=== PATIENT | male | born 1945 | race Caucasian/White ===

== ENCOUNTER 2022-07-12 17:58 | Emergency (ER) | payer OTHER ==
[~2022-07-12] VITALS: Ht 182.9 cm; Wt 117.5 kg
[~2022-07-12 17:58] MED LIST: ACET500 PO; AMIT50 PO; AMIT75; AMLO5 PO; ASPI325EC PO; CALC.25 PO; CALCIT950; CAPT25 PO; CEPH500 PO; CHOL10002 PO; GABA100 PO; HYDACE5 PO; HYDCHL25 PO; LEVFLO500 PO; Micro-K10 MEQ PO; OMEPRAZOLE MAGN20 MG PO; OXYACE5T PO; OXYC5 PO; POTCIT10; TERA5 PO
[2022-07-12 18:21] LABS: BASOPHILS ABSOLUTE AUTO 0.01 K/mm3 (0.00-0.23); BASOPHILS PERCENT AUTO 0 % (0-2); EOSINOPHILS ABSOLUTE AUTO 0.17 K/mm3 (0.00-0.68); EOSINOPHILS PERCENT AUTO 3 % (0-6); Hematocrit 41.6 % (37.0-53.0); Hemoglobin 14.2 g/dL (13.5-17.5); IMMATURE GRAN ABSOLUTE AUTO 0.02 K/mm3 (0.00-0.10); IMMATURE GRAN PERCENT AUTO 0 % (0-1); LYMPHOCYTES ABSOLUTE AUTO 0.89 K/mm3 (0.84-5.20); LYMPHOCYTES PERCENT AUTO 15 % (21-46); MONOCYTES ABSOLUTE AUTO 0.66 K/mm3 (0.16-1.47); MONOCYTES PERCENT AUTO 11 % (4-13); Mean Corpuscular HGB Conc 34.1 g/dL (31.5-36.5); Mean Corpuscular Volume 88 fL (80-100); Mean Platelet Volume 9.9 fL (9.1-12.4); NEUTROPHILS ABSOLUTE AUTO 4.26 K/mm3 (1.96-9.15); NEUTROPHILS PERCENT AUTO 71 % (41-73); Platelet Count 156 K/mm3 (150-400); RDW Standard Deviation 42.5 fL (35.1-46.3); Red Blood Cell Count 4.74 M/mm3 (4.30-5.90); White Blood Cell Count 6.01 K/mm3 (4.00-11.30)
[2022-07-12 19:52] LABS: Albumin, Blood 3.8 g/dL (3.4-5.0); Albumin/Globulin Ratio 1.4 (0.8-1.8); Bilirubin, Total 0.6 mg/dL (0.1-1.0); Bun/Creatinine Ratio 13.9 (12.0-20.0); Calcium, Blood 8.7 mg/dL (8.5-10.1); Creatinine, Blood 1.73 mg/dL (0.60-1.20); Globulin, Blood 2.8 g/dL (2.2-4.0); Potassium, Blood 4.4 mmol/L (3.5-5.5); Total Protein, Blood 6.6 g/dL (6.4-8.2)
== END 2022-07-12 23:30 | disposition home or self-care (01) ==
LOC: ER 17:58
PROVIDERS: Emergency Medicine
DX: R07.89 Other chest pain (principal); R06.02 Shortness of breath; I10 Essential (primary) hypertension; Z88.5 Allergy status to narcotic agent; Z79.899 Other long term (current) drug therapy; Z79.82 Long term (current) use of aspirin; Z87.891 Personal history of nicotine dependence
CPT/HCPCS: 71046; 80053; 84484; 85025; 85379; 93005; 93010; 99285-25

== ENCOUNTER 2022-11-15 13:47 | Emergency (ER) | payer OTHER ==
[~2022-11-15] VITALS: Ht 182.9 cm; Wt 122.5 kg
[2022-11-15 14:40] LABS: BASOPHILS ABSOLUTE AUTO 0.01 K/mm3 (0.00-0.23); BASOPHILS PERCENT AUTO 0 % (0-2); EOSINOPHILS PERCENT AUTO 2 % (0-6); Hematocrit 44.9 % (37.0-53.0); Hemoglobin 15.3 g/dL (13.5-17.5); IMMATURE GRAN ABSOLUTE AUTO 0.02 K/mm3 (0.00-0.10); IMMATURE GRAN PERCENT AUTO 1 % (0-1); LYMPHOCYTES ABSOLUTE AUTO 0.91 K/mm3 (0.84-5.20); LYMPHOCYTES PERCENT AUTO 21 % (21-46); MONOCYTES ABSOLUTE AUTO 0.43 K/mm3 (0.16-1.47); MONOCYTES PERCENT AUTO 10 % (4-13); Mean Corpuscular HGB 30.3 pg (26.0-34.0); Mean Corpuscular HGB Conc 34.1 g/dL (31.5-36.5); Mean Corpuscular Volume 89 fL (80-100); Mean Platelet Volume 10.6 fL (9.1-12.4); NEUTROPHILS ABSOLUTE AUTO 2.95 K/mm3 (1.96-9.15); NEUTROPHILS PERCENT AUTO 67 % (41-73); Platelet Count 141 K/mm3 (150-400); RDW Coefficient Variation 12.5 % (11.7-14.2); RDW Standard Deviation 41.3 fL (35.1-46.3); Red Blood Cell Count 5.05 M/mm3 (4.30-5.90); White Blood Cell Count 4.42 K/mm3 (4.00-11.30)
[2022-11-15 14:46] LABS: Albumin, Blood 3.8 g/dL (3.4-5.0); Albumin/Globulin Ratio 1.2 (0.8-1.8); Bilirubin, Total 0.7 mg/dL (0.1-1.0); Bun/Creatinine Ratio 18.1 (12.0-20.0); Calcium, Blood 8.7 mg/dL (8.5-10.1); Creatinine, Blood 1.71 mg/dL (0.60-1.20); Globulin, Blood 3.1 g/dL (2.2-4.0); Potassium, Blood 4.3 mmol/L (3.5-5.5); Total Protein, Blood 6.9 g/dL (6.4-8.2)
== END 2022-11-15 18:00 | disposition home or self-care (01) ==
LOC: ER 13:47
PROVIDERS: Student in an Organized Health Care Education/Training Program
DX: R07.89 Other chest pain (principal); I10 Essential (primary) hypertension; Z88.5 Allergy status to narcotic agent; Z79.899 Other long term (current) drug therapy; Z79.82 Long term (current) use of aspirin; Z87.891 Personal history of nicotine dependence
CPT/HCPCS: 71046; 80053; 83690; 83880; 84484; 85025; 93005; 93010; A9270; J3010

== ENCOUNTER 2023-10-23 09:50 | Day surgery (SDC) | payer OTHER ==
[~2023-10-23] VITALS: Ht 182.9 cm; Wt 127.3 kg
[2023-10-23] MEDS ORDERED: ALFU10 (10:10)
[2023-10-23] MEDS ORDERED: MELATONIN 5 MG1 EACH (10:10)
--- NOTE | 2023-10-23 10:31 | NUR ---
10/23/23 1031 Cindy Webster TETRACAINE PLACED IN RIGHT EYE AT 1009. PLEDGET PLACED IN RIGHT EYE AT 1010. PATIENT TOLERATED WELL.
[2023-10-23 11:02] VITALS: BP 146/88
[2023-10-29] MEDS ORDERED: Cymbalta20 MG (10:33)
[2023-10-29] MEDS ORDERED: GABAPENTIN600 MG PO (10:34)
[2023-10-29] MEDS ORDERED: FURO20 (10:34)
[2023-10-29] MEDS ORDERED: HYDCHL25 PO (10:35)
== END 2023-10-23 11:20 | disposition home or self-care (01) ==
LOC: ORSCSDS 09:50
PROVIDERS: Ophthalmology
PROC: 08RJ3JZ Replacement of Right Lens with Synthetic Substitute, Percutaneous Approach (ICD-10-PCS; principal; 2023-10-23 11:00)
DX: H25.11 Age-related nuclear cataract, right eye (principal); H52.201 Unspecified astigmatism, right eye; I12.9 Hypertensive chronic kidney disease with stage 1 through stage 4 chronic kidney disease, or unspecified chronic kidney disease; N18.9 Chronic kidney disease, unspecified; I48.91 Unspecified atrial fibrillation; K21.9 Gastro-esophageal reflux disease without esophagitis; M19.90 Unspecified osteoarthritis, unspecified site; Z79.899 Other long term (current) drug therapy
CPT/HCPCS: J2250; J3010; J3301; J7040; V2632

== ENCOUNTER 2023-11-06 10:07 | Day surgery (SDC) | payer OTHER ==
[~2023-11-06] VITALS: Ht 182.9 cm; Wt 126.0 kg
[~2023-11-06 10:07] MED LIST changes: +ALFU10; +Cymbalta20 MG; +FURO20; +GABAPENTIN600 MG PO; +MELATONIN 5 MG1 EACH
[2023-11-06] MEDS ORDERED: ELIQUIS5 M2 PO (10:44)
[2023-11-06] MEDS ORDERED: METOPROLOL SUCC25 MG PO (10:44)
[2023-11-06 11:55] VITALS: BP 140/93
--- NOTE | 2023-11-06 12:19 | NUR ---
11/06/23 1219 Filipe Mcbride IV REMOVED INTACT. SITE WNL.
== END 2023-11-06 12:12 | disposition home or self-care (01) ==
LOC: ORSCSDS 10:07
PROVIDERS: Ophthalmology
PROC: 08RK3JZ Replacement of Left Lens with Synthetic Substitute, Percutaneous Approach (ICD-10-PCS; principal; 2023-11-06 11:30)
DX: H25.12 Age-related nuclear cataract, left eye (principal); Z96.1 Presence of intraocular lens; H52.202 Unspecified astigmatism, left eye; K21.9 Gastro-esophageal reflux disease without esophagitis; I48.91 Unspecified atrial fibrillation; I10 Essential (primary) hypertension; R06.02 Shortness of breath; E66.9 Obesity, unspecified; Z68.37 Body mass index [BMI] 37.0-37.9, adult; Z87.891 Personal history of nicotine dependence; Z79.899 Other long term (current) drug therapy
CPT/HCPCS: J2250; J3010; J3301; J7040; V2632

== ENCOUNTER 2024-10-31 12:42 | Inpatient (IN) | payer OTHER ==
[~2024-10-31] VITALS: Ht 182.9 cm; Wt 117.1 kg
[~2024-10-31 12:42] MED LIST changes: -ALFU10; +ALFU10 PO; +ELIQUIS5 M2 PO; +METOPROLOL SUCC25 MG PO
[2024-10-31 13:11] LABS: BASOPHILS ABSOLUTE AUTO 0.01 K/mm3 (0.00-0.23); BASOPHILS PERCENT AUTO 0 % (0-2); EOSINOPHILS ABSOLUTE AUTO 0.13 K/mm3 (0.00-0.68); EOSINOPHILS PERCENT AUTO 2 % (0-6); Hemoglobin 18.5 g/dL (13.5-17.5); IMMATURE GRAN ABSOLUTE AUTO 0.02 K/mm3 (0.00-0.10); IMMATURE GRAN PERCENT AUTO 0 % (0-1); LYMPHOCYTES PERCENT AUTO 16 % (21-46); MONOCYTES ABSOLUTE AUTO 0.48 K/mm3 (0.16-1.47); MONOCYTES PERCENT AUTO 8 % (4-13); Mean Corpuscular HGB 29.8 pg (26.0-34.0); Mean Corpuscular HGB Conc 33.5 g/dL (31.5-36.5); Mean Corpuscular Volume 89 fL (80-100); Mean Platelet Volume 9.5 fL (9.1-12.4); NEUTROPHILS ABSOLUTE AUTO 4.16 K/mm3 (1.96-9.15); NEUTROPHILS PERCENT AUTO 73 % (41-73); Platelet Count 166 K/mm3 (150-400); RDW Coefficient Variation 13.6 % (11.7-14.2); RDW Standard Deviation 43.9 fL (35.1-46.3); Red Blood Cell Count 6.21 M/mm3 (4.30-5.90)
[2024-10-31 13:14] LABS: Hematocrit 55.3 % (37.0-53.0)
[2024-10-31 13:32] LABS: Albumin, Blood 3.9 g/dL (3.4-5.0); Albumin/Globulin Ratio 1.1 (0.8-1.8); Bun/Creatinine Ratio 15.4 (12.0-20.0); Calcium, Blood 9.4 mg/dL (8.5-10.1); Creatinine, Blood 1.62 mg/dL (0.60-1.20); Globulin, Blood 3.7 g/dL (2.2-4.0); Potassium, Blood 4.5 mmol/L (3.5-5.5); Total Protein, Blood 7.6 g/dL (6.4-8.2)
[2024-10-31] MEDS ORDERED: Acetaminophen 500 MG Tab PO ONE (15:35)
[2024-10-31] MEDS ORDERED: Vancomycin HCL 2,000 MG in NS 520 ML IV ONE (15:40)
[2024-10-31] MEDS ORDERED: ATORVASTATIN CA40 M1 PO (17:36)
[2024-10-31] MEDS ORDERED: BUME2 PO (17:37)
[2024-10-31] MEDS ORDERED: CYCL10 PO (17:37)
[2024-10-31] MEDS ORDERED: DOXY100 PO (17:38)
[2024-10-31] MEDS ORDERED: ISOMON20 PO (17:38)
[2024-10-31] MEDS ORDERED: FINA5 PO (17:38)
[2024-10-31] MEDS ORDERED: MELA3 PO (17:39)
[2024-10-31] MEDS ORDERED: LACT PO (17:39)
[2024-10-31] MEDS ORDERED: MECL12.5 PO (17:39)
[2024-10-31] MEDS ORDERED: NITR.4SL SL (17:40)
[2024-10-31] MEDS ORDERED: METO50ER PO (17:40)
[2024-10-31] MEDS ORDERED: Bisacodyl 10 MG Supp PR PRN (18:05)
[2024-10-31] MEDS ORDERED: Ondansetron 4 MG TAB PO PRN (18:10)
[2024-10-31] MEDS ORDERED: Magnesium Hydroxide Conc 10 ML UDC PO PRN (18:10)
[2024-10-31] MEDS ORDERED: FLU VACC TS2024-25(6MOS UP)/PF 45 MCG/0.5 ML SYRINGE IM ONE (18:10)
[2024-10-31] MEDS ORDERED: Bumetanide 1 MG Tab PO PRN (18:15)
[2024-10-31] MEDS ORDERED: Meclizine HCl 25 MG Tab PO PRN (18:15)
[2024-10-31] MEDS ORDERED: Nitroglycerin 0.4 MG SUBL SL PRN (18:15)
[2024-10-31] MEDS ORDERED: Acetaminophen 325 MG TABLET PO PRN (18:55)
[2024-10-31] MEDS ORDERED: Cyclobenzaprine HCl 10 MG Tab PO SCH (21:00)
[2024-10-31] MEDS ORDERED: Famotidine 20 MG Tab PO SCH (21:00)
[2024-10-31] MEDS ORDERED: Docusate Sodium 100 MG Cap PO SCH (21:00)
[2024-10-31] MEDS ORDERED: Lactobacil 2-S.Thermo-Bifido 1 1 Cap PO SCH (21:00)
[2024-10-31] MEDS ORDERED: Melatonin 3 MG Tab PO SCH (21:00)
[2024-10-31] MEDS ORDERED: Apixaban 5 MG Tab PO SCH (21:00)
[2024-10-31] MEDS ORDERED: Sennosides 8.6 MG Tab PO SCH (21:00)
[2024-10-31] MEDS ORDERED: AmLODIPine Besylate 5 MG Tab PO SCH (21:00)
[2024-10-31] MEDS ORDERED: Gabapentin 400 MG Cap PO SCH (21:00)
[2024-10-31 22:28] VITALS: BP 122/84
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
[2024-11-01 01:29] VITALS: BP 112/84
--- NOTE | 2024-11-01 03:57 | NUR ---
SHIFT SUMMARY PT WAS A ADMIT FROM THE ER THIS SHIFT. HES ALERT ORIENTED CALLS APPROPRIATELY HES AD JEFFREY IN HIS ROOM AND AMBULATES TO THE BATHROOM. NO C/O PAIN. VSS ON RA SATTING AT 95%. HIS LT LEG REMAINS RED AND SWOLLEN. HE CONTINUES ON VANCO FOR CELLULITIS TO LT LEG. HES SLEPT MOST OF THE SHIFT SINCE HIS ADMIT. HES RESTING IN BED AT THIS TIME WITH CALL LIGHT IN REACH
[2024-11-01 05:19] LABS: BASOPHILS ABSOLUTE AUTO 0.01 K/mm3 (0.00-0.23); BASOPHILS PERCENT AUTO 0 % (0-2); EOSINOPHILS ABSOLUTE AUTO 0.17 K/mm3 (0.00-0.68); EOSINOPHILS PERCENT AUTO 3 % (0-6); Hematocrit 50.7 % (37.0-53.0); Hemoglobin 17.2 g/dL (13.5-17.5); IMMATURE GRAN ABSOLUTE AUTO 0.02 K/mm3 (0.00-0.10); IMMATURE GRAN PERCENT AUTO 0 % (0-1); LYMPHOCYTES ABSOLUTE AUTO 0.92 K/mm3 (0.84-5.20); LYMPHOCYTES PERCENT AUTO 15 % (21-46); MONOCYTES ABSOLUTE AUTO 0.76 K/mm3 (0.16-1.47); MONOCYTES PERCENT AUTO 13 % (4-13); Mean Corpuscular HGB 30.3 pg (26.0-34.0); Mean Corpuscular HGB Conc 33.9 g/dL (31.5-36.5); Mean Corpuscular Volume 89 fL (80-100); NEUTROPHILS ABSOLUTE AUTO 4.12 K/mm3 (1.96-9.15); NEUTROPHILS PERCENT AUTO 69 % (41-73); Platelet Count 145 K/mm3 (150-400); RDW Coefficient Variation 13.6 % (11.7-14.2); RDW Standard Deviation 43.8 fL (35.1-46.3); Red Blood Cell Count 5.68 M/mm3 (4.30-5.90)
[2024-11-01 05:50] LABS: Bun/Creatinine Ratio 19.1 (12.0-20.0); Calcium, Blood 9.3 mg/dL (8.5-10.1); Creatinine, Blood 1.41 mg/dL (0.60-1.20); Potassium, Blood 4.1 mmol/L (3.5-5.5)
[2024-11-01 08:04] VITALS: BP 123/79
[2024-11-01] MEDS ORDERED: Isosorbide Mononitrate 60 MG TABCR PO SCH (09:00)
[2024-11-01] MEDS ORDERED: Atorvastatin 40 MG Tab PO SCH (09:00)
[2024-11-01] MEDS ORDERED: Tamsulosin HCl 0.4 MG Cap PO SCH (09:00)
[2024-11-01] MEDS ORDERED: Metoprolol Succinate 50 MG TABCR PO SCH (09:00)
[2024-11-01] MEDS ORDERED: Finasteride 5 MG Tab PO SCH (09:00)
[2024-11-01] MEDS ORDERED: NS 250 ML IV PRN (11:50)
[2024-11-01] MEDS ORDERED: CeFAZolin Sodium 2,000 MG in NS 100 ML IV SCH (12:00)
[2024-11-01 15:46] VITALS: BP 101/63
[2024-11-01] MEDS ORDERED: Vancomycin HCL 1,500 MG in NS 250 ML IV SCH (18:00)
--- NOTE | 2024-11-01 18:00 | NUR ---
SHIFT SUMMARY PT AOX4, SBA TO THE BR. CALLS AND MAKES HIS NEEDS KNOWN. MEDICATED FOR PAIN PER THE EMAR. ABLE TO REPOSITION SELF IN BED. PICTURES OF LLE OBTAINED AND PLACED IN THE CHART. NO ACUTE ISSUES THIS SHIFT. CALL LIGHT WITHIN REACH, BED LOCKED AND IN THE LOWEST POSITION. WILL REPORT TO ONCOMING NURSE.
[2024-11-01 19:29] VITALS: BP 117/69
[2024-11-02 01:34] VITALS: BP 123/70
--- NOTE | 2024-11-02 04:37 | NUR ---
SHIFT SUMMARY 79 YR M ADMITTED ON 10/31/24. FULL CODE. NO ACUTE CHANGES THIS SHIFT. PT IS A&O X 4 AND INDEPENDANT IN THE ROOM HE C/O PAIN IN THE LLE AND GIVEN TYLENOL PER EMAR. HE IS PLEASANT AND COOPERATIVE WITH CARE AND IS ABLE TO MAKE HIS NEEDS KNOWN. HE HAS SLEPT FOR MOST OF THIS SHIFT. BED IN LOW POSITION AND CALL LIGHT IN REACH.
[2024-11-02 05:28] LABS: BASOPHILS ABSOLUTE AUTO 0.02 K/mm3 (0.00-0.23); BASOPHILS PERCENT AUTO 0 % (0-2); EOSINOPHILS ABSOLUTE AUTO 0.16 K/mm3 (0.00-0.68); EOSINOPHILS PERCENT AUTO 3 % (0-6); Hematocrit 48.4 % (37.0-53.0); Hemoglobin 16.2 g/dL (13.5-17.5); IMMATURE GRAN ABSOLUTE AUTO 0.02 K/mm3 (0.00-0.10); IMMATURE GRAN PERCENT AUTO 0 % (0-1); LYMPHOCYTES ABSOLUTE AUTO 1.13 K/mm3 (0.84-5.20); LYMPHOCYTES PERCENT AUTO 19 % (21-46); MONOCYTES ABSOLUTE AUTO 0.86 K/mm3 (0.16-1.47); MONOCYTES PERCENT AUTO 14 % (4-13); Mean Corpuscular HGB 29.9 pg (26.0-34.0); Mean Corpuscular HGB Conc 33.5 g/dL (31.5-36.5); Mean Corpuscular Volume 90 fL (80-100); Mean Platelet Volume 9.7 fL (9.1-12.4); NEUTROPHILS ABSOLUTE AUTO 3.87 K/mm3 (1.96-9.15); NEUTROPHILS PERCENT AUTO 64 % (41-73); Platelet Count 141 K/mm3 (150-400); RDW Coefficient Variation 13.7 % (11.7-14.2); Red Blood Cell Count 5.41 M/mm3 (4.30-5.90); White Blood Cell Count 6.06 K/mm3 (4.00-11.30)
[2024-11-02 06:21] LABS: Bun/Creatinine Ratio 17.1 (12.0-20.0); Calcium, Blood 8.9 mg/dL (8.5-10.1); Creatinine, Blood 1.64 mg/dL (0.60-1.20); Potassium, Blood 4.3 mmol/L (3.5-5.5)
[2024-11-02 07:29] VITALS: BP 124/73
[2024-11-02] MEDS ORDERED: SULTRIDS PO (11:15)
--- NOTE | 2024-11-02 14:12 | NUR ---
DISCHARGE NOTE PT DISCHARGED TO HOME, PICKED UP BY HIS DAUGHTER. IV REMOVED, TELE RETURNED. DISCHARGE INFORMATION AND EDUCATION PROVIDED TO THE PT. MEDICATIONS FAXED TO THE PHARMACY OF HIS CHOICE. PERSONAL BELONGINGS RETURNED.
== END 2024-11-02 13:33 | disposition home or self-care (01) | DRG 872 ==
LOC: ER 12:42 → ERHOLD 20:14 → MEDS 20:14 → ENPENDDIS 11-02 11:14 → MEDS 11-02 13:33
PROVIDERS: Emergency Medicine; ADMIT Hospitalist
DX: A41.9 Sepsis, unspecified organism (principal); L03.116 Cellulitis of left lower limb; I13.0 Hypertensive heart and chronic kidney disease with heart failure and stage 1 through stage 4 chronic kidney disease, or unspecified chronic kidney disease; D68.69 Other thrombophilia; I48.20 Chronic atrial fibrillation, unspecified; M70.21 Olecranon bursitis, right elbow; N40.0 Benign prostatic hyperplasia without lower urinary tract symptoms; N18.30 Chronic kidney disease, stage 3 unspecified; I50.9 Heart failure, unspecified; M19.90 Unspecified osteoarthritis, unspecified site; Z96.642 Presence of left artificial hip joint; Z79.01 Long term (current) use of anticoagulants; Z90.49 Acquired absence of other specified parts of digestive tract; Z98.890 Other specified postprocedural states; Z98.49 Cataract extraction status, unspecified eye; Z87.891 Personal history of nicotine dependence; Z88.5 Allergy status to narcotic agent; Z79.899 Other long term (current) drug therapy
CPT/HCPCS: 36415; 73590; 80048; 80053; 83605; 85025; 93971; 96365; 99285-25; A9270; J0690; J3370; J7040

== ENCOUNTER 2025-03-16 11:13 | Emergency (ER) | payer OTHER ==
[~2025-03-16] VITALS: Ht 182.9 cm; Wt 131.5 kg
[~2025-03-16 11:13] MED LIST changes: +ATORVASTATIN CA40 M1 PO; +BUME2 PO; +CYCL10 PO; +DOXY100 PO; +FINA5 PO; +ISOMON20 PO; +LACT PO; +MECL12.5 PO; +MELA3 PO; +METO50ER PO; +NITR.4SL SL; +SULTRIDS PO
[2025-03-16] MEDS ORDERED: HYDROmorphone HCl/Pf 1MG SYR ONE (11:17)
[2025-03-16] MEDS ORDERED: CEPH500 PO (11:36)
[2025-03-16] MEDS ORDERED: ATOR40TA PO (11:36)
[2025-03-16] MEDS ORDERED: JARDIANCE10 MG PO (11:37)
[2025-03-16] MEDS ORDERED: FURO20 PO (11:38)
[2025-03-16] MEDS ORDERED: Lactated Ringer's 1,000 ML IV ONE (11:40)
[2025-03-16] MEDS ORDERED: Norco 5-325 Ta1 EACH PO (11:41)
[2025-03-16 12:13] LABS: BASOPHILS ABSOLUTE AUTO 0.01 K/mm3 (0.00-0.23); BASOPHILS PERCENT AUTO 0 % (0-2); EOSINOPHILS ABSOLUTE AUTO 0.07 K/mm3 (0.00-0.68); EOSINOPHILS PERCENT AUTO 1 % (0-6); Hemoglobin 19.8 g/dL (13.5-17.5); IMMATURE GRAN ABSOLUTE AUTO 0.03 K/mm3 (0.00-0.10); IMMATURE GRAN PERCENT AUTO 0 % (0-1); LYMPHOCYTES PERCENT AUTO 10 % (21-46); MONOCYTES ABSOLUTE AUTO 0.21 K/mm3 (0.16-1.47); MONOCYTES PERCENT AUTO 3 % (4-13); Mean Corpuscular HGB 30.6 pg (26.0-34.0); Mean Corpuscular HGB Conc 33.6 g/dL (31.5-36.5); Mean Corpuscular Volume 91 fL (80-100); NEUTROPHILS ABSOLUTE AUTO 5.77 K/mm3 (1.96-9.15); NEUTROPHILS PERCENT AUTO 85 % (41-73); Platelet Count 109 K/mm3 (150-400); RDW Coefficient Variation 13.9 % (11.7-14.2); RDW Standard Deviation 46.4 fL (35.1-46.3); Red Blood Cell Count 6.47 M/mm3 (4.30-5.90); White Blood Cell Count 6.79 K/mm3 (4.00-11.30)
[2025-03-16 12:36] LABS: Albumin, Blood 4.1 g/dL (3.4-5.0); Albumin/Globulin Ratio 1.4 (0.8-1.8); Bilirubin, Total 2.2 mg/dL (0.1-1.0); Bun/Creatinine Ratio 15.9 (12.0-20.0); Creatinine, Blood 1.51 mg/dL (0.60-1.20); Potassium, Blood 4.8 mmol/L (3.5-5.5); Total Protein, Blood 7.1 g/dL (6.4-8.2)
[2025-03-16 12:46] LABS: Influenza A, PCR NEGATIVE (NEGATIVE); Influenza B, PCR NEGATIVE (NEGATIVE); Resp Syncytial Virus, PCR NEGATIVE (NEGATIVE); SARS-Cov-2 (COVID-19) PCR, MMC NEGATIVE (NEGATIVE)
[2025-03-16] MEDS ORDERED: Metoprolol Tartrate 1 MG/ML 5 ML VIAL IV ONE ×2 (14:00→14:45)
[2025-03-16 15:45] VITALS: BP 148/82
== END 2025-03-16 16:06 | disposition home or self-care (01) ==
LOC: ER 11:13
PROVIDERS: Emergency Medicine
DX: I48.91 Unspecified atrial fibrillation (principal)
CPT/HCPCS: 0241U; 36415; 71046; 80053; 83605; 83880; 84484; 85025; 87040; 93005; 93010; 96361; 96374; 96375; 96376; 99285-25; J1171; J7120

== ENCOUNTER 2025-03-20 16:38 | Emergency (ER) | payer OTHER ==
[~2025-03-20] VITALS: Ht 182.9 cm; Wt 127.0 kg
[~2025-03-20 16:38] MED LIST changes: +ATOR40TA PO; +FURO20 PO; +JARDIANCE10 MG PO; +Norco 5-325 Ta1 EACH PO
[2025-03-20 17:55] LABS: BASOPHILS ABSOLUTE AUTO 0.02 K/mm3 (0.00-0.23); BASOPHILS PERCENT AUTO 0 % (0-2); EOSINOPHILS ABSOLUTE AUTO 0.12 K/mm3 (0.00-0.68); EOSINOPHILS PERCENT AUTO 2 % (0-6); Hemoglobin 18.9 g/dL (13.5-17.5); IMMATURE GRAN ABSOLUTE AUTO 0.03 K/mm3 (0.00-0.10); IMMATURE GRAN PERCENT AUTO 1 % (0-1); LYMPHOCYTES ABSOLUTE AUTO 1.04 K/mm3 (0.84-5.20); LYMPHOCYTES PERCENT AUTO 17 % (21-46); MONOCYTES ABSOLUTE AUTO 0.84 K/mm3 (0.16-1.47); MONOCYTES PERCENT AUTO 14 % (4-13); Mean Corpuscular HGB 29.8 pg (26.0-34.0); Mean Corpuscular HGB Conc 32.7 g/dL (31.5-36.5); Mean Corpuscular Volume 91 fL (80-100); Mean Platelet Volume 9.9 fL (9.1-12.4); NEUTROPHILS ABSOLUTE AUTO 3.96 K/mm3 (1.96-9.15); NEUTROPHILS PERCENT AUTO 66 % (41-73); Platelet Count 142 K/mm3 (150-400); RDW Coefficient Variation 13.5 % (11.7-14.2); RDW Standard Deviation 45.9 fL (35.1-46.3); Red Blood Cell Count 6.34 M/mm3 (4.30-5.90); White Blood Cell Count 6.01 K/mm3 (4.00-11.30)
[2025-03-20 17:57] LABS: Hematocrit 57.8 % (37.0-53.0)
[2025-03-20 18:05] LABS: Albumin, Blood 3.9 g/dL (3.4-5.0); Albumin/Globulin Ratio 1.1 (0.8-1.8); Bilirubin, Total 2.6 mg/dL (0.1-1.0); Bun/Creatinine Ratio 16.4 (12.0-20.0); Calcium, Blood 8.6 mg/dL (8.5-10.1); Creatinine, Blood 1.52 mg/dL (0.60-1.20); Globulin, Blood 3.7 g/dL (2.2-4.0); Potassium, Blood 4.7 mmol/L (3.5-5.5); Total Protein, Blood 7.6 g/dL (6.4-8.2)
[2025-03-20 18:33] VITALS: BP 146/84
== END 2025-03-20 18:34 | disposition home or self-care (01) ==
LOC: ER 16:38
PROVIDERS: Student in an Organized Health Care Education/Training Program
DX: T24.232D Burn of second degree of left lower leg, subsequent encounter (principal); T24.231D Burn of second degree of right lower leg, subsequent encounter; I13.0 Hypertensive heart and chronic kidney disease with heart failure and stage 1 through stage 4 chronic kidney disease, or unspecified chronic kidney disease; I50.9 Heart failure, unspecified; N18.9 Chronic kidney disease, unspecified; Z86.14 Personal history of Methicillin resistant Staphylococcus aureus infection; Z87.891 Personal history of nicotine dependence; Z88.5 Allergy status to narcotic agent; Z79.84 Long term (current) use of oral hypoglycemic drugs; Z79.01 Long term (current) use of anticoagulants; Z79.899 Other long term (current) drug therapy; X08.8XXD Exposure to other specified smoke, fire and flames, subsequent encounter
CPT/HCPCS: 80053; 85025; 99283

== ENCOUNTER 2025-07-28 15:52 | Inpatient (IN) | payer OTHER ==
[~2025-07-28] VITALS: Ht 182.9 cm; Wt 122.5 kg
[~2025-07-28 15:52] MED LIST changes: -ISOMON20 PO; +Isosorbide Mono60 MG PO
[2025-07-28 16:36] LABS: BASOPHILS ABSOLUTE AUTO 0.02 K/mm3 (0.00-0.23); BASOPHILS PERCENT AUTO 0 % (0-2); EOSINOPHILS ABSOLUTE AUTO 0.17 K/mm3 (0.00-0.68); EOSINOPHILS PERCENT AUTO 3 % (0-6); Hematocrit 54.7 % (37.0-53.0); Hemoglobin 18.6 g/dL (13.5-17.5); IMMATURE GRAN ABSOLUTE AUTO 0.03 K/mm3 (0.00-0.10); IMMATURE GRAN PERCENT AUTO 1 % (0-1); LYMPHOCYTES ABSOLUTE AUTO 0.97 K/mm3 (0.84-5.20); LYMPHOCYTES PERCENT AUTO 16 % (21-46); MONOCYTES ABSOLUTE AUTO 0.75 K/mm3 (0.16-1.47); MONOCYTES PERCENT AUTO 12 % (4-13); Mean Corpuscular HGB Conc 34.0 g/dL (31.5-36.5); Mean Corpuscular Volume 92 fL (80-100); NEUTROPHILS ABSOLUTE AUTO 4.17 K/mm3 (1.96-9.15); NEUTROPHILS PERCENT AUTO 68 % (41-73); NRBC ABSOLUTE 0.00 K/mm3 (0.00-0.02); NRBC Auto 0.0 /100 WBC (0.0-0.2); Platelet Count 119 K/mm3 (150-400); RDW Coefficient Variation 13.6 % (11.7-14.2); RDW Standard Deviation 46.0 fL (35.1-46.3)
[2025-07-28 17:03] LABS: Alanine Aminotransfer (ALT/SGP 14.0 U/L (12-78); Albumin, Blood 3.4 g/dL (3.4-5.0); Albumin/Globulin Ratio 1.3 (0.8-1.8); Anion Gap 9.0 mmol/L (3-11); Aspartate Aminotrans (AST/SGOT 24.0 U/L (12-37); Bilirubin, Total 1.6 mg/dL (0.1-1.0); Blood Urea Nitrogen 29.0 mg/dL (8-24); CO2, Blood 25.0 mmol/L (21-32); Calcium, Blood 8.5 mg/dL (8.5-10.1); Chloride, Blood 111.0 mmol/L (98-108); Creatinine, Blood 1.93 mg/dL (0.60-1.20); Globulin, Blood 2.6 g/dL (2.2-4.0); Glucose, Blood 94.0 mg/dL (70-99); Potassium, Blood 4.5 mmol/L (3.5-5.5); Sodium, Blood 140.0 mmol/L (136-145); Total Protein, Blood 6.0 g/dL (6.4-8.2)
[2025-07-28 18:32] LABS: Source, Urine Voided
[2025-07-28 18:35] LABS: Bilirubin, Urine Neg (Neg); Color, Urine Yellow (P-Yellow); Glucose Qualitative, Urine 4+ (Neg); Ketones, Urine Neg (Neg); Leukocyte Esterase, Urine Neg (Neg); Protein, Urine 1+ (Neg); Specific Gravity, Urine 1.020 (1.003-1.022); Urobilinogen, Urine NORM (Normal)
[2025-07-28] MEDS ORDERED: Ondansetron HCl 2 MG / ML 2ML Vial IV PRN (20:45)
[2025-07-28] MEDS ORDERED: NS 750 ML IV SCH (21:00)
[2025-07-28 22:49] VITALS: BP 127/84
[2025-07-29] MEDS ORDERED: DULO30 PO (03:26)
[2025-07-29] MEDS ORDERED: SOLI5 PO (03:28)
[2025-07-29] MEDS ORDERED: METO25ER PO (03:30)
[2025-07-29] MEDS ORDERED: ACET500 PO (03:34)
[2025-07-29 04:15] VITALS: BP 121/88
[2025-07-29 06:02] LABS: Anion Gap 7.0 mmol/L (3-11); Blood Urea Nitrogen 29.0 mg/dL (8-24); CO2, Blood 28.0 mmol/L (21-32); Calcium, Blood 8.4 mg/dL (8.5-10.1); Chloride, Blood 109.0 mmol/L (98-108); Creatinine, Blood 1.67 mg/dL (0.60-1.20); Glucose, Blood 92.0 mg/dL (70-99); Potassium, Blood 4.0 mmol/L (3.5-5.5); Sodium, Blood 140.0 mmol/L (136-145)
--- NOTE | 2025-07-29 06:23 | NUR ---
ADMISSION AND SHIFT SUMMARY ASSUMED CARE AT 2230. PT REPORTS LIGHTHEADEDNESS WITH STANDING OR AMBULATION, SAFETY PRECAUTIONS IN PLACE, DANGLING AT EDGE OF BED PRIOR. PT REPORTS FEELING WEEKS OF FATIGUE AND WEAKNESS AT HOME PRIOR TO SYNCOPAL EVENT. ENDORSES ORTHOPNEA. PT STATED "I FEEL OVERMEDICATED". MED REC [facility]PD[facility] TELE IN [facility]ACE, AFIB RHYTHM. PT IS A/Ox4, VSS ON RA. PT DENIES PAIN, SOB, NAUSEA OR OTHER COMPLAINTS.
[2025-07-29 07:35] VITALS: BP 146/97
[2025-07-29] MEDS ORDERED: DULoxetine HCL 30 MG Cap DR PO SCH (09:00)
[2025-07-29] MEDS ORDERED: Isosorbide Mononitrate 60 MG TABCR PO SCH (09:30)
--- NOTE | 2025-07-29 15:47 | NUR ---
SUPERVISOR ELECTRIC NOTIFICATION NOTE: RECEIVED A CALL FROM JEANNINE RAMIREZ AT 1535. PER JEANNINE PATIENT HAD 2.28 SECOND PAUSE AT 1530, AFIB IN THE 70'S BPM. ASSESS: PATIENT LAYING IN BED, DENIES CP/PRESSURE, SOB, N/V AND DIZZINESS. PATIENT REPORTS "I'M JUST RESTING HERE DOOZE OFF/ON". VITALS TAKEN; TEMP 97.3, RESP 16, HR 70 BPM, BP 104/76, O2 95% ON RA. NOTIFIED DR. ALEXANDRO adkins THIS CONCERN, NO NEW ORDERS AT THIS TIME, CTM T/O SHIFT.
--- NOTE | 2025-07-29 17:30 | NUR ---
DIRECTOR OF MARKET INTELLIGENCE NOTIFICATION NOTE: RECEIVED A CALL FROM JEANNINE LOGAN AT 1728. PER JEANNINE PATIENT HAD 2 SECOND PAUSE AT 1727. ASSESS: PATIENT LAYING IN BED TALKING ON THE PHONE, BP 132/87, HR AT 65 BPM. PATIENT DENIES CP, SOB, N/V AND DIZZINESS. NOTIFIED DR. MC AT 1730 c NO NEW ORDER, CTM.
[2025-07-29 17:31] VITALS: BP 132/87
--- NOTE | 2025-07-29 17:42 | NUR ---
SHIFT SUMMARY: PATIENT HAD 2 EPISODE OF PAUSES THIS SHIFT. DR. MC IS AWARE AND MADE SOME CHANGES ON PATIENT MEDICATION. PATIENT CONTINUES TO DENIES CP, SOB, N/V AND DIZZINESS. PATIENT STILL AFIB HR IN 60'S TO 70'S BPM. PATIENT HAS MOD APPETITE, CONTINENT OF BAB AND AMBULATES TO BATHROOM c SBA. PATIENT HAD SHOWER AND LINEN CHANGED TODAY. PATIENT A/OX4, PLEASANT AND COOPERATIVE c CARE. CALL LIGHT IN REACH.
[2025-07-29 19:34] VITALS: BP 125/79
[2025-07-29 23:49] VITALS: BP 126/90
[2025-07-30 04:42] VITALS: BP 139/98
[2025-07-30 06:14] LABS: BASOPHILS ABSOLUTE AUTO 0.01 K/mm3 (0.00-0.23); BASOPHILS PERCENT AUTO 0 % (0-2); EOSINOPHILS ABSOLUTE AUTO 0.25 K/mm3 (0.00-0.68); EOSINOPHILS PERCENT AUTO 5 % (0-6); Hematocrit 54.1 % (37.0-53.0); Hemoglobin 18.6 g/dL (13.5-17.5); IMMATURE GRAN ABSOLUTE AUTO 0.02 K/mm3 (0.00-0.10); IMMATURE GRAN PERCENT AUTO 0 % (0-1); LYMPHOCYTES ABSOLUTE AUTO 1.05 K/mm3 (0.84-5.20); LYMPHOCYTES PERCENT AUTO 19 % (21-46); MONOCYTES ABSOLUTE AUTO 0.61 K/mm3 (0.16-1.47); MONOCYTES PERCENT AUTO 11 % (4-13); Mean Corpuscular HGB Conc 34.4 g/dL (31.5-36.5); Mean Corpuscular Volume 89 fL (80-100); NEUTROPHILS ABSOLUTE AUTO 3.64 K/mm3 (1.96-9.15); NEUTROPHILS PERCENT AUTO 65 % (41-73); NRBC ABSOLUTE 0.00 K/mm3 (0.00-0.02); NRBC Auto 0.0 /100 WBC (0.0-0.2); Platelet Count 114 K/mm3 (150-400); RDW Coefficient Variation 13.3 % (11.7-14.2); RDW Standard Deviation 43.4 fL (35.1-46.3)
[2025-07-30 06:37] LABS: Albumin, Blood 3.4 g/dL (3.4-5.0); Anion Gap 7 mmol/L (3-11); Blood Urea Nitrogen 23 mg/dL (8-24); CO2, Blood 27 mmol/L (21-32); Calcium, Blood 8.5 mg/dL (8.5-10.1); Chloride, Blood 108 mmol/L (98-108); Creatinine, Blood 1.62 mg/dL (0.60-1.20); Glucose, Blood 106 mg/dL (70-99); Phosphorus, Blood 3.8 mg/dL (2.5-4.9); Potassium, Blood 4.2 mmol/L (3.5-5.5); Sodium, Blood 138 mmol/L (136-145)
[2025-07-30 07:33] VITALS: BP 133/97
--- NOTE | 2025-07-30 08:04 | NUR ---
Shift Summary Arrived at 0328 w/ caregiver at the bedside. Slide transfer over from gurney to bed w/ 3p assist. AOx1-2, NS infusing @ 75 x 1 500cc. Denies pain. Patient lives alone but has 24-hour caregivers that switch out so that there is always one person with patient. 1-2p w/ bed mobility. Caregiver reports that patient was at her baseline of SBA FWW prior to being hospitalize with COVID during her most recent admission. Also reports that patient now uses a sit to stand for transfers and that she has HH-PT already coming to the [facility]ym[facility]. 2L O3 w/stats >90. Report handed to ESDRAS Galaviz. Care relinquished.
--- NOTE | 2025-07-30 08:05 | NUR ---
Shift Summary Tele was uneventful. Afib 60-70s. On RA. Patient slept through the night. Report given to ESDRAS Galaviz. Care relinquished.
[2025-07-30] MEDS ORDERED: Isosorbide Mononitrate 30 MG TABCR PO SCH (09:00)
[2025-07-30] MEDS ORDERED: Isosorbide Mononitrate 60 MG TABCR PO SCH (09:00)
[2025-07-30 12:00] VITALS: BP 130/88
[2025-07-30 16:36] VITALS: BP 130/89
--- NOTE | 2025-07-30 18:06 | NUR ---
SHIFT SUMMARY: PATIENT REPORTS FEELING TIRED TODAY, NO EVENTS ON TELE, STILL AFIB HR IN THE 70'S BPM. PATIENT DENIES CP/PRESSURE, SOB, N/V AND DIZZINESS. PATIENT RECEIVED SCHEDULED MED PER EMAR. PATIENT HAS HAD NO COMPLAINTS OR DENIES NEW CONCERNED THIS SHIFT. VITAL SIGNS REVIEWED. CALL LIGHT IN REACH.
[2025-07-30 19:54] VITALS: BP 133/94
[2025-07-31 04:09] VITALS: BP 126/95
[2025-07-31 06:50] LABS: BASOPHILS ABSOLUTE AUTO 0.02 K/mm3 (0.00-0.23); BASOPHILS PERCENT AUTO 0 % (0-2); EOSINOPHILS ABSOLUTE AUTO 0.27 K/mm3 (0.00-0.68); EOSINOPHILS PERCENT AUTO 5 % (0-6); Hemoglobin 19.3 g/dL (13.5-17.5); IMMATURE GRAN ABSOLUTE AUTO 0.02 K/mm3 (0.00-0.10); IMMATURE GRAN PERCENT AUTO 0 % (0-1); LYMPHOCYTES ABSOLUTE AUTO 0.96 K/mm3 (0.84-5.20); LYMPHOCYTES PERCENT AUTO 17 % (21-46); MONOCYTES ABSOLUTE AUTO 0.60 K/mm3 (0.16-1.47); MONOCYTES PERCENT AUTO 11 % (4-13); Mean Corpuscular HGB Conc 34.5 g/dL (31.5-36.5); Mean Corpuscular Volume 89 fL (80-100); NEUTROPHILS ABSOLUTE AUTO 3.73 K/mm3 (1.96-9.15); NEUTROPHILS PERCENT AUTO 67 % (41-73); NRBC ABSOLUTE 0.00 K/mm3 (0.00-0.02); NRBC Auto 0.0 /100 WBC (0.0-0.2); Platelet Count 110 K/mm3 (150-400); RDW Coefficient Variation 13.3 % (11.7-14.2); RDW Standard Deviation 43.5 fL (35.1-46.3)
[2025-07-31 06:57] LABS: Hematocrit 56.0 % (37.0-53.0)
--- NOTE | 2025-07-31 07:03 | NUR ---
Shift Summary No acute cardiac events from telemetry. No changes. VSS. Tele: Afib 70's.
[2025-07-31 07:15] LABS: Anion Gap 9.0 mmol/L (3-11); Blood Urea Nitrogen 20.0 mg/dL (8-24); CO2, Blood 27.0 mmol/L (21-32); Calcium, Blood 8.7 mg/dL (8.5-10.1); Chloride, Blood 107.0 mmol/L (98-108); Creatinine, Blood 1.54 mg/dL (0.60-1.20); Glucose, Blood 122.0 mg/dL (70-99); Potassium, Blood 4.1 mmol/L (3.5-5.5); Sodium, Blood 139.0 mmol/L (136-145)
[2025-07-31 08:25] VITALS: BP 145/106
[2025-07-31 16:27] VITALS: BP 128/92
--- NOTE | 2025-07-31 18:07 | NUR ---
SHIFT SUMMARY PATIENT ADMITTED FOR SYCOPE AND COLLAPSE. VITAL SIGNS STABLE THIS SHIFT. PATIENT COMPLAINED OF WEAKNESS THIS AM WHICH RESOLVED ON ITS OWN THIS AFTERNOON. PATIENT WALKED WITH ASSISTANCE FROM PHYSICAL THERAPY. PATIENT WATCHING TV AND RESTING. CALL LIGHT WITHIN REACH.
[2025-07-31 19:53] VITALS: BP 140/91
[2025-08-01 00:11] VITALS: BP 128/91
[2025-08-01 03:48] VITALS: BP 133/93
[2025-08-01 05:28] LABS: BASOPHILS ABSOLUTE AUTO 0.01 K/mm3 (0.00-0.23); BASOPHILS PERCENT AUTO 0 % (0-2); EOSINOPHILS ABSOLUTE AUTO 0.25 K/mm3 (0.00-0.68); EOSINOPHILS PERCENT AUTO 4 % (0-6); Hemoglobin 19.4 g/dL (13.5-17.5); IMMATURE GRAN ABSOLUTE AUTO 0.02 K/mm3 (0.00-0.10); IMMATURE GRAN PERCENT AUTO 0 % (0-1); LYMPHOCYTES ABSOLUTE AUTO 1.04 K/mm3 (0.84-5.20); LYMPHOCYTES PERCENT AUTO 17 % (21-46); MONOCYTES ABSOLUTE AUTO 0.71 K/mm3 (0.16-1.47); MONOCYTES PERCENT AUTO 12 % (4-13); Mean Corpuscular HGB Conc 34.9 g/dL (31.5-36.5); Mean Corpuscular Volume 89 fL (80-100); NEUTROPHILS ABSOLUTE AUTO 3.97 K/mm3 (1.96-9.15); NEUTROPHILS PERCENT AUTO 66 % (41-73); NRBC ABSOLUTE 0.00 K/mm3 (0.00-0.02); NRBC Auto 0.0 /100 WBC (0.0-0.2); Platelet Count 117 K/mm3 (150-400); RDW Coefficient Variation 13.2 % (11.7-14.2); RDW Standard Deviation 42.7 fL (35.1-46.3)
[2025-08-01 05:32] LABS: Hematocrit 55.6 % (37.0-53.0)
--- NOTE | 2025-08-01 05:40 | NUR ---
Shift Summary AOx3-4. Patient did report some weakness during day shift according to day shift RN Jacki. He denied any weakness tonight. Up to the bathroom independently to void. Slept well. No complaints of pain. Tonight was uneventful.
[2025-08-01 05:51] LABS: Anion Gap 9.0 mmol/L (3-11); Blood Urea Nitrogen 21.0 mg/dL (8-24); CO2, Blood 26.0 mmol/L (21-32); Calcium, Blood 8.7 mg/dL (8.5-10.1); Chloride, Blood 107.0 mmol/L (98-108); Creatinine, Blood 1.47 mg/dL (0.60-1.20); Glucose, Blood 94.0 mg/dL (70-99); Potassium, Blood 4.1 mmol/L (3.5-5.5); Sodium, Blood 138.0 mmol/L (136-145)
[2025-08-01 08:44] VITALS: BP 130/98
[2025-08-01] MEDS ORDERED: Isosorbide Mono30 MG PO (10:58)
--- NOTE | 2025-08-01 14:55 | NUR ---
DISCHARGE SUMMARY PT EDUCATED ON DISCHARGE PACKET AND INSTRUCTIONS/CHANGES TO MEDICATION REGIMEN. PT VERBALIZED UNDERSTANDING. [employer] [facility] CALLED AND PT TO PAY, MEDICAL ONCOLOGY PHYSICIAN CALLED AND STATED [facility] COM[facility] AUDIO RECORDING ENGINEER PT. PT INFORMED TO COLLECT RECEIPT FROM [employer] AND TAKE TO [facility] TO GET REIMBURSED. PT IV REMOVED. ESCORTED DOWN TO PT ENTRANCE BY TELEGRAPH INSTALLER. [employer] SERVICE STATED THEY BE ABOUT 15 MINUTES ETA. PT VERBALIZED UNDERSTANING. NO NEW QUESTIONS OR CONCERNS PRIOR TO DC.
== END 2025-08-01 14:54 | disposition home health service (06) | DRG 312 ==
LOC: ER 15:52 → MEDS 15:53
PROVIDERS: Emergency Medicine; Family Medicine; Nurse Practitioner Acute Care; ADMIT Student in an Organized Health Care Education/Training Program
DX: I95.2 Hypotension due to drugs (principal); I13.0 Hypertensive heart and chronic kidney disease with heart failure and stage 1 through stage 4 chronic kidney disease, or unspecified chronic kidney disease; I45.5 Other specified heart block; Z88.5 Allergy status to narcotic agent; Z79.899 Other long term (current) drug therapy; G62.9 Polyneuropathy, unspecified; M19.90 Unspecified osteoarthritis, unspecified site; Z87.19 Personal history of other diseases of the digestive system; E78.5 Hyperlipidemia, unspecified; T50.2X5A Adverse effect of carbonic-anhydrase inhibitors, benzothiadiazides and other diuretics, initial encounter; I50.9 Heart failure, unspecified; Z98.890 Other specified postprocedural states; Z90.49 Acquired absence of other specified parts of digestive tract; Z90.89 Acquired absence of other organs; Z87.891 Personal history of nicotine dependence; I48.91 Unspecified atrial fibrillation; N18.30 Chronic kidney disease, stage 3 unspecified; N40.0 Benign prostatic hyperplasia without lower urinary tract symptoms; E66.01 Morbid (severe) obesity due to excess calories; Z68.38 Body mass index [BMI] 38.0-38.9, adult
CPT/HCPCS: 36415; 80048; 80053; 80069; 83880; 84443; 84484; 85025; 93005; 93010; 93246; 97162; 97530; 99285-25; A9270; G0378; J7030

== ENCOUNTER 2025-10-12 09:12 | Day surgery (SDC) | payer OTHER ==
[2025-10-12] VITALS (12 sets, daily range): BP systolic 126–157; BP diastolic 88–110
[~2025-10-12] VITALS: Ht 182.9 cm; Wt 121.6 kg
[~2025-10-12 09:12] MED LIST changes: +DULO30 PO; +Isosorbide Mono30 MG PO; +METO25ER PO; +SOLI5 PO
[2025-10-12] MEDS ORDERED: Heparin Sodium 1000 Units/ML 10ML MDV ONE (11:00)
[2025-10-12] MEDS ORDERED: NS 250 ML IV ONE (11:01)
[2025-10-12] MEDS ORDERED: NS 1,000 ML IV ONE ×2 (11:01→11:22)
[2025-10-12] MEDS ORDERED: NiCARdipine HCL 1,000 MCG/5 ML SYR ONE (11:01)
[2025-10-12] MEDS ORDERED: FentaNYL Citrate 50 MCG/ML 2 ML Injection ONE (11:21)
[2025-10-12] MEDS ORDERED: Midazolam HCl 1MG / ML 2ML Vial ONE (11:22)
--- NOTE | 2025-10-12 12:33 | NUR ---
PT RETURNED TO RECOVERY ROOM IN RECLINER. R RAD TR BAND SITE SOFT NON-TENDER WITH NO HEMATOMA, NO PULSATILE BLEEDING AND RIGHT WRIST BRACE IN PLACE. PT EATING LUNCH AND DRINKING COFFEE. CALL LIGHT IN REACH. PT DENIES CHEST PAIN.
--- NOTE | 2025-10-12 15:53 | NUR ---
Pt discharged at approximately 1545. Taken to front entrance via wheelchair. Pt alert and oriented at time of discharge, pt verbalized understanding of all discharge instructions and follow up appointment time/date. R radial access site intact, no bleeding, swelling or hematoma noted, armboard in place. All personal belongings sent home with patient.
== END 2025-10-12 15:55 | disposition home or self-care (01) ==
LOC: MHTC 09:12
DX: I25.10 Atherosclerotic heart disease of native coronary artery without angina pectoris (principal); I50.30 Unspecified diastolic (congestive) heart failure; I48.19 Other persistent atrial fibrillation; N18.9 Chronic kidney disease, unspecified; E78.00 Pure hypercholesterolemia, unspecified; I13.0 Hypertensive heart and chronic kidney disease with heart failure and stage 1 through stage 4 chronic kidney disease, or unspecified chronic kidney disease; Z88.8 Allergy status to other drugs, medicaments and biological substances; Z88.5 Allergy status to narcotic agent; Z79.899 Other long term (current) drug therapy
CPT/HCPCS: 76937; 93454; 99152; A9270; C1769; C1887; C1894; J1644; J2250; J3010; J7030; J7050; Q9967